=== PATIENT | female | born 1960 | race Caucasian/White ===

== ENCOUNTER → 2017-06-06 | Day surgery (SDC) | payer BC, OTHER ==
[2017-05-29 14:46] VITALS: Ht 162.6 cm; Wt 130.9 kg
[~2017-06-06] VITALS: Ht 162.6 cm; Wt 130.9 kg
[~2017-06-06] MED LIST: ALBUAER INH; ASPI81TA28 PO; FERR27TA5 PO; FLNIN NAE; LIDOCAINE HCL 2% 2 ML VIAL (20MG/ML) ONE; LOSA1TAB PO; METOPROLOL TARTRATE 1 MG/ML VIAL ONE; MONT1TAB3 PO; OMEG10007 PO; OMEP20TA PO; PROPOFOL IV EMULSION 10 MG/ML 20 ML VIAL IV ONE; SIMV40TA4 PO; SODIUM CHLORIDE 0.9% 500ML 500 ML IV ONE; TIOTCAP INH; UMEC1AER INH
[2017-06-06 13:46] VITALS: TEMP 37
--- NOTE | 2017-06-06 14:04 | Endo History and Physical ---
History & Physical Date of Service: Jun 06, 2017. Chief Complaint: Hiatal hernia Referring Physician: Dr. Delfin Mcconnell History of Present Illness 57 yo presenting for EGD for epigastric abdominal pain Past Medical History Arthritis, Asthma, Reflux, High Cholesterol, Hypertension, COPD Past Surgical History Hx Cardiac Surgery: No Hx Internal Defibrillator: No Hx Pacemaker: No Hx Abdominal Surgery: Yes (MAULIK BSO, HERNIA REPAIR, TUBAL LIGATION) Hx of Implantable Prosthesis: No Hx Post-Op Nausea and Vomiting: No Hx Cancer Surgery: No Hx Thoracic Surgery: No Hx Orthopedic: Yes (CTR) Hx Urinary Tract Surgery: No Family History None Social History Smoking Status: Never Smoker Hx Substance Use: No Hx Alcohol Use: Yes (A FEW ON WEEKEND) Allergies Coded Allergies: Sulfa Antibiotics (Verified Allergy, Intermediate, RASH, 05/29/17) Current Medications Reported Home Medications Medications Dose Route/Sig Max Daily Dose Days Date Category Anoro Ellipta 62.5-25 Mcg/INH (Umeclidinium-Vilanterol) 1 Aer Aer INH DAILY 06/06/17 Reported Aspirin Ec (Aspirin) 81 Mg Tab 81 Mg PO HS 05/29/17 Reported Iron (Ferrous Gluconate) 27 Mg Tab 1 Tab PO HS 01/28/16 Reported Tiline-3 (Fish Oil) 1 Ea Cap 1 Cap PO HS 01/28/16 Reported Cozaar (Losartan Potassium) 25 Mg Tab 25 Mg PO HS 01/28/16 Reported Proventil Hfa (Albuterol) Aers 2 Puffs INH Q4 PRN 01/28/16 Reported Flonase Nasal [place] (Fluticasone Propionate) 120 Sprays/6000 Mcg Inha 2 Sprays MADDI DAILY PRN 07/18/13 Reported Zocor (Simvastatin) 40 Mg Tab 40 Mg PO HS 07/18/13 Reported Omeprazole 20 Mg Tab 20 Mg PO HS 07/18/13 Reported Singulair (Montelukast Sodium) 10 Mg Tab 10 Mg PO HS 07/18/13 Reported Vital Signs Weight (Kilograms): 130.91 Height (Feet): 5 Height (Inches): 4 Date Time Temp Pulse Resp B/P (MAP) Pulse Ox O2 Delivery O2 Flow Rate FiO2 06/06/17 13:46 37 79 22 179/116 (137) 97 Room Air Physical Exam General Appearance: WD/WN, no apparent distress Respiratory/Chest: Respiratory effort: no dyspnea Auscultation: breath sounds normal, CTA except as noted Cardiovascular: Apical Impulse: not displaced Heart Auscultation: RRR, normal S1, normal S2 Abdomen: Bowel Sounds: normal Inspection & Palpation: soft, non-distended, no tenderness, guarding & rebound Assessment and Plan 57 yo presenting for EGD for abdominal pain
--- NOTE | 2017-06-06 14:51 | GI REPORT ---
Procedure Date: 06/06/2017 1:40 PM Procedure: Upper GI endoscopy Indications: Epigastric abdominal pain Medicines: General Anesthesia Complications: No immediate complications. Estimated blood loss: None. Estimated Blood Loss: Estimated blood loss: none. Procedure: Pre-Anesthesia Assessment: - Pre-Anesthesia Assessment: - Prior to the procedure, a History and Physical was performed, and patient medications, allergies and sensitivities were reviewed. The patient's tolerance of previous anesthesia was reviewed. Please see [facility] for complete details. - The risks and benefits of the procedure and the sedation options and risks were discussed with the patient. All questions were answered and informed consent was obtained. - Patient identification and proposed procedure were verified prior to the procedure by the physician and the nurse. The procedure was verified in the pre-procedure area in the procedure room. After obtaining informed consent, the endoscope was passed carefully and meticuously under direct vision and only advanced when the lumen was clearly identified, C02 insuflation was utilized throughout the entirity of the procedure. Throughout the procedure, the patient's blood pressure, pulse, and oxygen saturations were monitored continuously. After obtaining informed consent, the endoscope was passed under direct vision. Throughout the procedure, the patient's blood pressure, pulse, and oxygen saturations were monitored continuously. The Scope was introduced through the mouth, and advanced to the second part of duodenum. The upper GI endoscopy was accomplished without difficulty. The patient tolerated the procedure well. Findings: A large hiatus hernia was found with mild erosoins in the hernia sac from mechanical abrasion, consistent with Zac's erosions. No bleeding. The entire examined stomach was normal. The examined duodenum was normal. Impression: - Large hiatus hernia. - Normal stomach. - Normal examined duodenum. - No specimens collected. Recommendation: - Discharge patient to home (with escort). - Return to referring physician as previously scheduled. - Use Prilosec (omeprazole) 20 mg PO BID for 2 months. - Return to referring physician as previously scheduled. - If symptoms continue with medical therapy, consider evaluation for Daniel Fundiplication. Pardeep Smith MD 06/06/2017 2:50:25 PM This report has been signed electronically. Note Initiated On: 06/06/2017 1:40 PM I attest to the content of the Intraoperative Record and orders documented therein, exceptions below
--- NOTE | 2017-06-06 14:51 | Discharge Instructions ---
Endoscopy Patient Instructions Date / Procedure(s) Performed Jun 06, 2017. EGD Allergy Information Coded Allergies: Sulfa Antibiotics (Verified Allergy, Intermediate, RASH, 05/29/17) Discharge Date / Findings Jun 06, 2017. Large Hiatal hernia Mild erosions in the hernia sac Please increase your omeprazole to 20 mg twice daily Medication Instructions Stopped Medication(s): Patient stopped taking aspirin and iron Provider Instructions Activity Restrictions - No exercising or heavy lifting for 24 hours. - Do not drink alcohol the day of the procedure. - Do not drive a car or operate machinery until the day after the procedure. - Do not make any important decisions or sign important papers in 24 hours after the procedure. Following Day: - Return to full activity which may include returning to work/school. Diet Start your diet with liquids and light foods (jello, soup, juice, toast). Then eat your usual diet if not nauseated. Treatment For Common After Affects For mild abdominal pain, bloating, or excessive gas: - Rest - Eat lightly - Lie on right side Follow-Up Information Follow-up with Dr. Delfin Mcconnell as scheduled Anesthesia Information What You Should Know You have had a procedure that required some medicine to reduce anxiety and discomfort. This treatment is called moderate sedation. After receiving the treatment, you may be sleepy, but you will be able to breathe on your own. The effects of the treatment may last for several hours. Follow these instructions along with Activity/Diet recommendations noted above: * Do NOT do anything where dizziness or clumsiness would be dangerous. * Rest quietly at home today, then you can be up and about tomorrow. * Have a responsible person stay with you the rest of today. * You may have had an I.V. today. If so, you may take the dressing off later today. Recommendations Call your doctor if: * Trouble breathing * Continuous vomiting for more than 24 hours * Temperature above 101 degrees * Severe abdominal pain or bloating * Pain not relieved by pain medicine ordered * There is increased drainage or redness from any incision * A large amount of rectal bleeding greater than 2-3 tablespoons. (If you had a polyp/s removed or have hemorrhoids, a small amount of blood - from the rectum is to be expected.) * You have any unanswered questions or concerns. IN THE EVENT OF A SERIOUS EMERGENCY, GO TO THE NEAREST EMERGENCY ROOM Your discharge instructions were prepared by provider Pardeep Smith. Patient Instructions Signature Page Lis Qiu Patient (or Guardian) Signature/Date: I have read and understand the instructions given to me by my caregivers. Caregiver/RN/Doctor Signature/Date: The above-named patient and/or guardian has received patient instructions on this date. + Original Patient Signature Page (only) stays with chart. Please make copy for patient.
--- NOTE | 2017-06-06 14:52 | Anesthesiology Progress Note ---
Anesthesia Post Op Note Date & Time Jun 06, 2017 at 14:52 Vital Signs Pain Intensity: 0 Vital Signs Past 12 Hours Date Time Temp Pulse Resp B/P (MAP) Pulse Ox O2 Delivery O2 Flow Rate FiO2 06/06/17 14:47 85 20 161/98 (119) 93 Room Air 06/06/17 14:43 84 20 136/71 (92) 95 Room Air 06/06/17 13:46 37 79 22 179/116 (137) 97 Room Air Notes Mental Status: alert / awake / arousable, participated in evaluation Pt Amnestic to Procedure: Yes Nausea / Vomiting: adequately controlled Pain: adequately controlled Airway Patency, RR, SpO2: stable & adequate BP & HR: stable & adequate Hydration State: stable & adequate Anesthetic Complications: no major complications apparent
[2017-06-06 15:03] VITALS: BP 153/106; PULSE 70; O2SAT 100
== END | disposition home or self-care (01) ==
LOC: C.GI 13:25
PROVIDERS: ATTEND Internal Medicine
DX: R10.13 Epigastric pain (principal); M19.90 Unspecified osteoarthritis, unspecified site; J45.909 Unspecified asthma, uncomplicated; K44.9 Diaphragmatic hernia without obstruction or gangrene; K21.9 Gastro-esophageal reflux disease without esophagitis; E78.00 Pure hypercholesterolemia, unspecified; I10 Essential (primary) hypertension; J44.9 Chronic obstructive pulmonary disease, unspecified; Z79.82 Long term (current) use of aspirin; Z79.899 Other long term (current) drug therapy

== ENCOUNTER → 2018-01-22 | Outpatient (CLI) | payer OTHER ==
[~2018-01-22] MED LIST changes: -LIDOCAINE HCL 2% 2 ML VIAL (20MG/ML) ONE; -METOPROLOL TARTRATE 1 MG/ML VIAL ONE; -PROPOFOL IV EMULSION 10 MG/ML 20 ML VIAL IV ONE; -SODIUM CHLORIDE 0.9% 500ML 500 ML IV ONE; -TIOTCAP INH
--- NOTE | 2018-01-22 11:52 | DIAGNOSTIC IMAGING REPORT ---
DOUBLE CONTRAST UPPER GI SERIES CLINICAL HISTORY: Hiatal hernia. COMPARISON STUDY: Chest CT dated 07/18/2013. TECHNIQUE: A standard air contrast upper GI series was performed. Spot images of the esophagus and stomach were obtained in multiple obliquities both upright and prone. FINDINGS: The patient swallowed barium without difficulty. The esophagus is structurally normal without evidence of intrinsic or extrinsic mass. Mild esophageal dysmotility is observed. The esophageal mucosal pattern is normal. No gastroesophageal reflux was elicited by having the patient perform the Valsalva maneuver. The gastroesophageal junction distends normally. There is a large hiatal hernia, with over half of the stomach located in the thoracic cavity. The stomach demonstrates normal distensibility and the gastroesophageal junction is located above the diaphragm. No mass or ulceration is identified. There was no evidence of gastritis. The duodenal bulb and sweep are unremarkable. Fluoroscopy time: 2.5 minutes. Fluoroscopic images: 22 IMPRESSION: 1. Large hiatal hernia. 2. Otherwise unremarkable barium esophagram. Electronically signed by: Kamar Morales M.D. 01/22/2018 11:50 AM Dictated Date/Time: 01/22/2018 11:43 AM
== END | disposition home or self-care (01) ==
LOC: C.RAD 10:37
PROVIDERS: ATTEND Surgery
DX: K44.9 Diaphragmatic hernia without obstruction or gangrene (principal)